=== PATIENT | male | born 1980 | race Two or more races ===

== ENCOUNTER 2017-04-14 11:33 | Emergency (ER) | payer OTHER ==
[~2017-04-14] VITALS: Ht 167.6 cm; Wt 63.5 kg
--- NOTE | 2017-04-14 11:38 | NUR ---
PT CONNIERA TO ER BED 10. C/O WEAKNESS AFTER HE WAS PUT ON A HANDCUFF. DENIES CHEST PAIN. NO OTHER COMPLAINT. PLACED ON MONITOR. STABLE VITALS. AWAITING MD OJEDA.
--- NOTE | 2017-04-14 11:40 | NUR ---
DR COLLIER AT BEDSIDE FOR EVAL.
[2017-04-14 11:51] VITALS: BP 144/75
--- NOTE | 2017-04-14 11:54 | NUR ---
MEDICALLY CLEARED FOR BOOKING. D/C TO PD. STABLE CONDITION.
== END 2017-04-14 12:00 | disposition home or self-care (01) ==
LOC: ER 11:36
DX: S30.860A Insect bite (nonvenomous) of lower back and pelvis, initial encounter (principal); F41.9 Anxiety disorder, unspecified; W57.XXXA Bitten or stung by nonvenomous insect and other nonvenomous arthropods, initial encounter; Y93.89 Activity, other specified; Y92.89 Other specified places as the place of occurrence of the external cause; Y99.9 Unspecified external cause status
CPT/HCPCS: A4606; Z7610